=== PATIENT | female | born 1985 | race Caucasian/White ===

== ENCOUNTER 2016-12-17 17:39 | Emergency (ER) | payer SELFPAY ==
[~2016-12-17] VITALS: Ht 167.6 cm; Wt 52.2 kg
--- NOTE | ~2016-12-17 | CR63 ---
[facility] A Service of [facility] & [facility] RADIOLOGY TEXT RESULTS PATIENT: KEVEN JOHNSON LOCATION: CFTX : [birth year] UNIT #: [id number] AGE: [address]: Xiomy Michele APRN SEX: F ORDER DR: [id number] [facility] [address] [place], [place] [address] [id number] MR#: [id number] Acc #: [id number] NAME: KEVEN JOHNSON : 1985 SEX: F STUDY DATE/TIME: 12/17/2016 18:29 UNIT: [facility] ROOM: STUDY DESCRIPTION: CR Chest 2 View Attending Physician: Xiomy Michele A.P.R.N. Ordering Physician: Ed Doctor [id number] [facility] Primary Care Physician: Primary Care Physician No MEDICAL IMAGING REPORT This report is preliminary unless electronic signature is present EXAM PA and lateral chest HISTORY Shortness of air and wheezing for 1 week. FINDINGS Two views of the chest demonstrate the cardiac size and pulmonary vascularity are normal. No infiltrates or effusions. Lungs are clear. Surgical clips in the right upper quadrant. IMPRESSION No acute findings. Dictated by... Thaddeus Goodman M.D. THIS IS AN ELECTRONICALLY VERIFIED REPORT Thaddeus Goodman M.D. at 12/18/2016 11:32 PM SHANAE/ilir TD: 12/18/2016 07:01 JOB #: [id number] MEDICAL IMAGING REPORT Page 1 of 1 COPY
== END 2016-12-17 19:20 | disposition home or self-care (01) ==
LOC: CFTX 17:39 → CED 17:39 → CFTX 18:35
DX: L23.9 Allergic contact dermatitis, unspecified cause (principal); L03.312 Cellulitis of back [any part except buttock and flank]; J98.01 Acute bronchospasm; F17.210 Nicotine dependence, cigarettes, uncomplicated; Z86.19 Personal history of other infectious and parasitic diseases; Z90.49 Acquired absence of other specified parts of digestive tract
CPT/HCPCS: 71020; 94640; 99283